=== PATIENT | female | born 1965 | race African-American/Black ===

== ENCOUNTER 2017-01-13 07:43 | Emergency (ER) | payer OTHER ==
[~2017-01-13] VITALS: Ht 160 cm; Wt 75.7 kg
[2017-01-13 13:17] VITALS: BP 105/77
== END 2017-01-13 13:15 | disposition home or self-care (01) ==
LOC: ED 07:43
DX: F31.9 Bipolar disorder, unspecified (principal); R45.1 Restlessness and agitation; I10 Essential (primary) hypertension
CPT/HCPCS: J1200; J1630

== ENCOUNTER 2017-08-14 12:11 | Emergency (ER) | payer OTHER ==
[~2017-08-14] VITALS: Ht 160 cm; Wt 77.1 kg
[2017-08-14 12:26] VITALS: Ht 160 cm; Wt 77.1 kg
[2017-08-14 14:35] VITALS: BP 155/97
== END 2017-08-14 14:35 | disposition home or self-care (01) ==
LOC: ED 12:11 → EDBEDREQSVC 13:52 → ED 14:35
DX: F31.9 Bipolar disorder, unspecified (principal); I10 Essential (primary) hypertension
CPT/HCPCS: J1200; J1630; J2060; J7030

== ENCOUNTER 2018-03-04 14:41 | Emergency (ER) | payer OTHER ==
[~2018-03-04] VITALS: Ht 160 cm; Wt 82.6 kg
[2018-03-04 14:58] VITALS: BP 136/93; Ht 160 cm; Wt 82.6 kg
== END 2018-03-04 17:15 | disposition left against medical advice (07) ==
LOC: ED 14:41
DX: Z53.21 Procedure and treatment not carried out due to patient leaving prior to being seen by health care provider (principal)

== ENCOUNTER 2018-07-13 20:03 | Emergency (ER) | payer OTHER ==
[~2018-07-13] VITALS: Ht 160 cm; Wt 82.6 kg
[2018-07-13 20:18] VITALS: Ht 160 cm; Wt 82.6 kg
[2018-07-14 00:38] VITALS: BP 128/79
== END 2018-07-14 00:38 | disposition home or self-care (01) ==
LOC: ED 20:03
DX: F31.9 Bipolar disorder, unspecified (principal); I10 Essential (primary) hypertension
CPT/HCPCS: J1630; J2060

== ENCOUNTER 2018-09-01 12:17 | Emergency (ER) | payer OTHER ==
[~2018-09-01] VITALS: Ht 160 cm; Wt 81.6 kg
[2018-09-01 12:20] VITALS: BP 136/96; Ht 160 cm; Wt 81.6 kg
== END 2018-09-01 13:32 | disposition left against medical advice (07) ==
LOC: ED 12:17
DX: Z53.21 Procedure and treatment not carried out due to patient leaving prior to being seen by health care provider (principal)

== ENCOUNTER 2018-10-08 08:33 | Emergency (ER) | payer OTHER ==
[~2018-10-08] VITALS: Ht 160 cm; Wt 82.6 kg
[2018-10-08 08:38] VITALS: Ht 160 cm; Wt 82.6 kg
[2018-10-08 10:34] VITALS: BP 140/78
== END 2018-10-08 10:34 | disposition home or self-care (01) ==
LOC: ED 08:33
DX: S63.619A Unspecified sprain of unspecified finger, initial encounter (principal); I10 Essential (primary) hypertension; F31.9 Bipolar disorder, unspecified; W18.30XA Fall on same level, unspecified, initial encounter; Y93.89 Activity, other specified; Y92.89 Other specified places as the place of occurrence of the external cause; Y99.8 Other external cause status; R51 Headache
CPT/HCPCS: Q0092; Q0162